=== PATIENT | female | born 2000 | race Caucasian/White ===

== ENCOUNTER 2021-11-17 19:14 | Emergency (ER) | payer OTHER, BC ==
[2021-11-17] MEDS ORDERED: Diphtheria,Pertussis(Acell),Tetanus Vaccine 0.5 ML Syringe IM ONE (19:55)
--- NOTE | 2021-11-17 19:55 | EDM.PDOC ---
ED HPI GENERAL MEDICAL PROBLEM - General Chief Complaint: Laceration Time Seen by Provider: 11/17/21 19:25 Source of Information: Reports: Patient, RN Notes Reviewed History Limitations: Reports: No Limitations - History of Present Illness INITIAL COMMENTS - FREE TEXT/NARRATIVE: 20 yo F who presented to the ER with Laceration to the Left Little finger. Reports that she sustained the injury at work. Unsure of her last tetanus immunization. Presented to the ER for further evaluation. Onset: Today Duration: Hour(s): (occured 1 hpur prior to presentation) Left Finger-Little Pain Score (Numeric/FACES): 4 - Related Data Allergies Allergy/AdvReac Type Severity Reaction Status Date / Time No Known Allergies Allergy Verified 11/17/21 19:42 Home Meds: Home Meds NK [No Known Home Meds] 11/17/21 [History] Past Medical History Musculoskeletal History: Reports: Fracture Social & Family History - Tobacco Use Tobacco Use Status *Q: Unknown Ever Used Tobacco - Caffeine Use Caffeine Use: Reports: Coffee, Soda ED ROS GENERAL - Review of Systems Review Of Systems: See Below Constitutional: Reports: No Symptoms HEENT: Reports: No Symptoms Respiratory: Reports: No Symptoms Cardiovascular: Reports: No Symptoms Endocrine: Reports: No Symptoms GI/Abdominal: Reports: No Symptoms : Reports: No Symptoms Musculoskeletal: Reports: No Symptoms Skin: Reports: No Symptoms Neurological: Reports: No Symptoms Psychiatric: Reports: No Symptoms Hematologic/Lymphatic: Reports: No Symptoms Immunologic: Reports: No Symptoms ED EXAM, SKIN/RASH Exam: See Below Exam Limited By: No Limitations General Appearance: Alert, WD/WN, No Apparent Distress Ears: Normal External Exam, Normal Canal, Hearing Grossly Normal, Normal TMs Nose: Normal Inspection, Normal Mucosa, No Blood Throat/Mouth: Normal Inspection, Normal Lips, Normal Teeth, Normal Gums, Normal Oropharynx, Normal Voice, No Airway Compromise Head: Atraumatic, Normocephalic Neck: Normal Inspection, Supple, Non-Tender, Full Range of Motion Respiratory/Chest: No Respiratory Distress, Lungs Clear, Normal Breath Sounds, No Accessory Muscle Use, Chest Non-Tender Cardiovascular: Normal Peripheral Pulses, Regular Rate, Rhythm, No Edema, No Gallop, No JVD, No Murmur, No Rub GI/Abdominal: Normal Bowel Sounds, Soft, Non-Tender, No Organomegaly, No Distention, No Abnormal Bruit, No Mass Back Exam: Normal Inspection, Full Range of Motion, NT Extremities: Normal Inspection, Normal Range of Motion, Non-Tender, No Pedal Edema, Normal Capillary Refill Neurological: Alert, Oriented, CN II-XII Intact, Normal Cognition, Normal Gait, Normal Reflexes, No Motor/Sensory Deficits Psychiatric: Normal Affect, Normal Mood Skin: Warm, Normal Color, No Rash Location, Skin: Other (Left Little finger -- 0.5 cm superficial Laceration over the bey aspect of the distal phalanx.) Lymphatic: No Adenopathy ED SKIN PROCEDURES - Laceration/Wound Repair Left Digit - 5th (Baby) Appearance: Superficial, Clean Distal NVT: Neuro & Vascular Intact Local Anesthetic Volume: 5cc Skin Prep: Saline Closed with: Dermabond Lac/Wound length In cm: 0.5 Sterile Dressing Applied: Provider Tetanus Status Addressed: Yes Complications: No Course - Vital Signs Last Recorded V/S: Last Vital Signs Temp 35.9 C L 11/17/21 19:16 Pulse 79 11/17/21 19:16 Resp 16 11/17/21 19:16 BP 116/76 11/17/21 19:16 Pulse Ox 99 11/17/21 19:16 - Orders/Labs/Meds Orders: Active Orders 24 hr Category Date Time Status Vaccine to be Administered/Admin Charge [RC] ASDIRECTED Care 11/17/21 19:55 Active Meds: Medications Discontinued Medications Generic Name Dose Route Start Last Admin Trade Name Freq PRN Reason Stop Dose Admin Diphtheria/Tetanus/Acell Pertussis 0.5 ml 11/17/21 19:55 11/17/21 19:59 Diphtheria,Pertussis(Acell),Tetanus Vaccine 0.5 Ml Syringe IM 11/17/21 19:56 0.5 ml .ONCE ONE Administration Departure - Departure Time of Disposition: 20:11 Disposition: Home, Self-Care 01 Condition: Good Clinical Impression: Finger laceration Qualifiers: Encounter type: initial encounter Finger: little finger Damage to nail status: without damage Foreign body presence: without foreign body Laterality: left Qualified Code(s): S61.217A - Laceration without foreign body of left little finger without damage to nail, initial encounter - Discharge Information *PRESCRIPTION DRUG MONITORING PROGRAM REVIEWED*: Not Applicable *COPY OF PRESCRIPTION DRUG MONITORING REPORT IN PATIENT DEQUAN: Not Applicable Instructions: Laceration Care, Adult Referrals: PCP,None [Primary Care Provider] - Forms: ED Department Discharge Additional Instructions: Follow with PCP Return if symptoms worsen Call your Physician or Return to Emergency Department if: * Your condition worsens in any way. * You develop fever greater than 100.4. * You have vomitting that does not stop with medications. * You have pain that is not controlled with medications. Sepsis Event Note (ED) - Evaluation Sepsis Screening Result: No Definite Risk - Focused Exam Vital Signs: Vital Signs Temp Pulse Resp BP Pulse Ox 11/17/21 19:16 35.9 C L 79 16 116/76 99 - My Orders Last 24 Hours: My Active Orders 11/17/21 19:55 Vaccine to be Administered/Admin Charge [RC] ASDIRECTED - Assessment/Plan Last 24 Hours: My Active Orders 11/17/21 19:55 Vaccine to be Administered/Admin Charge [RC] ASDIRECTED
== END 2021-11-17 20:29 | disposition home or self-care (01) ==
LOC: FB.ED 19:14
DX: S61.217A Laceration without foreign body of left little finger without damage to nail, initial encounter (principal); Z23 Encounter for immunization; W26.8XXA Contact with other sharp object(s), not elsewhere classified, initial encounter; Y92.89 Other specified places as the place of occurrence of the external cause; Y99.0 Civilian activity done for income or pay
CPT/HCPCS: 12001; 90471; 90715; 99282-25

== ENCOUNTER 2022-04-09 09:44 | Emergency (ER) | payer BC, OTHER ==
[2022-04-09] MEDS ORDERED: Ketorolac 30 MG/ML SDV IM ONE (10:28)
[2022-04-09] MEDS ORDERED: Gabapentin 100 MG Cap PO ONE (10:28)
[2022-04-09] MEDS ORDERED: Acetaminophen 325 MG Tab PO ONE (10:28)
== END 2022-04-09 11:05 | disposition home or self-care (01) ==
LOC: FB.ED 09:44
DX: K04.7 Periapical abscess without sinus (principal); K05.10 Chronic gingivitis, plaque induced
CPT/HCPCS: 96372; 99281; 99282; A9270-GY; J1885